=== PATIENT | female | born 1980 | race Caucasian/White ===

== ENCOUNTER 2019-04-08 09:47 | Inpatient (IN) | payer OTHER ==
[~2019-04-08] VITALS: Ht 165.1 cm; Wt 72.6 kg
--- NOTE | 2019-04-08 09:57 | NUR ---
CAME IN FOR ABDOMINAL CRAMPING, VAGINAL BLEEDING X 10 DAYS. SEND BY OB FOR EVAL. TO ER BED 16, HOOKED TO MONITOR, CHANGED TO GOWN, PROVIDED W WARM BLANKET, AT BEDSIDE, AWAITING MD SAMUEL
--- NOTE | 2019-04-08 09:58 | NUR ---
DR PINZON AT BEDSIDE
[2019-04-08] MEDS ORDERED: IV NS 0.9% 1,000 ML BAG IV ONE (10:00)
[2019-04-08 10:15] LABS: BASOPHILS % (AUTO) 0.7 % (0.0-2.0); EOSINOPHILS % (AUTO) 2.3 % (0.0-6.0); HEMATOCRIT 37 % (33-45); HEMOGLOBIN 12.1 g/dL (11.5-14.8); LYMPHOCYTES # (AUTO) 1.8 /CMM (0.8-4.8); LYMPHOCYTES % (AUTO) 28.8 % (20.0-44.0); MEAN CORPUSCULAR HGB CONC 33 g/dl (31.0-36.0); MEAN CORPUSCULAR VOLUME 87 fL (82-100); MONOCYTES # (AUTO) 0.4 /CMM (0.1-1.30); MONOCYTES % (AUTO) 6.4 % (2.0-12.0); NEUTROPHILS # (AUTO) 3.9 /CMM (1.8-8.9); NEUTROPHILS % (AUTO) 61.8 % (43.0-81.0); PLATELET COUNT (AUTO) 304 /CMM (150-450); RED BLOOD CELL COUNT(AUTO) 4.19 MIL/uL (4.0-5.2); WHITE BLOOD COUNT (AUTO) 6.3 K/uL (4.3-11.0)
--- NOTE | 2019-04-08 10:31 | NUR ---
US TECH AT BEDSIDE
[2019-04-08] MEDS ORDERED: ANESTHESIA TRAY IN PYXIS 1 EA TRAY MC ONE (10:40)
--- NOTE | 2019-04-08 11:07 | NUR ---
REPORT GIVEN TO SUZAN BENJAMIN RN OF OR, CONSENT FOR DILATATION AND CURETTAGE SIGNED, CONSENT FOR BLOOD TRANSFUSION SIGNED, CONSENT FOR ANESTHESIA SIGNED BY PATIENT, PRE-OP CHECKLIST DONE.
--- NOTE | 2019-04-08 11:10 | NUR ---
WHEELED OUT VIA GURNEY BY OR NURSES
[2019-04-08 12:26] LABS: CALCIUM, SERUM 8.4 mg/dL (8.5-10.1); CREATININE 0.8 mg/dL (0.6-1.3); POTASSIUM 4.1 mmol/L (3.5-5.1)
[2019-04-08] MEDS ORDERED: CLINDAMYCIN 900 MG/6 ML VIAL ONE (13:00)
[2019-04-08] MEDS ORDERED: ONDANSETRON HCL/PF 4 MG/2 ML VIAL ONE (13:31)
[2019-04-08 13:33] LABS: ALBUMIN 3.9 g/dL (3.4-5.0); BILIRUBIN,DIRECT 0.1 mg/dL (0.0-0.2); BILIRUBIN,TOTAL 0.4 mg/dL (0.2-1.0); TOTAL PROTEIN, SERUM 7.6 g/dL (6.4-8.2)
[2019-04-08] MEDS ORDERED: IBUPROFEN 400 MG TABLET PO PRN (14:00)
[2019-04-08] MEDS ORDERED: ACETAMINOPHEN W/ CODEINE#3 1 EA TABLET PO PRN (14:00)
[2019-04-08 14:45] VITALS: BP 121/74
--- NOTE | 2019-04-08 14:45 | NUR ---
CRIME LAB TECHNICIAN NOTES PT STABLE S/P D&C. PT AT BEDSIDE. NO COMPLAINTS OF PAIN, SOB OR DISTRESS. PT HAS RIGHT HAND #20 IV INTACT AND PATENT. PT EDUCATED TO THE USE OF THE CALL LIGHT. SKIN INTACT. SAFETY PRECAUTIONS IN PLACE, BED IN LOWEST LOCKED POSITION, X2 SIDE RAILS UP AND CALL LIGHT WITHIN REACH. WILL CONTINUE TO MONITOR.
[2019-04-08 15:15] VITALS: BP 118/81
--- NOTE | 2019-04-08 15:24 | NUR ---
RN NOTES PER PATIENT DOES NOT WANT TO SHARE INFORMATION ABOUT DIAGNOSIS TO FAMILY, EXCEPT .
[2019-04-08] MEDS: IV D5 LR 1,000 ML IV PRN (15:52)
[2019-04-08 16:15] VITALS: BP 109/77
--- NOTE | 2019-04-08 16:38 | NUR ---
RN NOTES ENTERED ALL ORDERS PER DR SANTILLAN. WILL CARRY OUT.
[2019-04-08 17:00] VITALS: BP 135/83
--- NOTE | 2019-04-08 17:39 | NUR ---
RN NOTES PER DR SANTILLAN PT OKAY TO DISCHARGE TOMORROW AFTER TEST.
[2019-04-08 17:45] VITALS: BP 127/69
[2019-04-08 18:12] LABS: BASOPHILS # (AUTO) 0.1 /CMM (0.0-0.2); BASOPHILS % (AUTO) 1.2 % (0.0-2.0); EOSINOPHILS % (AUTO) 1.6 % (0.0-6.0); HEMATOCRIT 32 % (33-45); HEMOGLOBIN 10.5 g/dL (11.5-14.8); LYMPHOCYTES # (AUTO) 1.9 /CMM (0.8-4.8); LYMPHOCYTES % (AUTO) 36.2 % (20.0-44.0); MEAN CORPUSCULAR HGB CONC 33 g/dl (31.0-36.0); MEAN CORPUSCULAR VOLUME 87 fL (82-100); MONOCYTES # (AUTO) 0.3 /CMM (0.1-1.30); MONOCYTES % (AUTO) 6.3 % (2.0-12.0); NEUTROPHILS # (AUTO) 2.9 /CMM (1.8-8.9); NEUTROPHILS % (AUTO) 54.7 % (43.0-81.0); PLATELET COUNT (AUTO) 263 /CMM (150-450); RED BLOOD CELL COUNT(AUTO) 3.65 MIL/uL (4.0-5.2); WHITE BLOOD COUNT (AUTO) 5.3 K/uL (4.3-11.0)
--- NOTE | 2019-04-08 18:21 | NUR ---
RN CLOSING NOTES PT AWAKE AND RESTING IN BED. PT AT BEDSIDE. NO COMPLAINTS OF PAIN, SOB OR DISTRESS DURING SHIFT. PT HAS RIGHT HAND #20 IV INTACT AND PATENT AND RUNNING D5LR @75ML/HR. PT TOLERATING FLUIDS WELL. PT HAS URINATED POST ROSARIO REMOVAL. NO SIGNS OF CONTINUED VAGINAL BLEEDING. SAFETY PRECAUTIONS IN PLACE, BED IN LOWEST LOCKED POSITION, X2 SIDE RAILS UP AND CALL LIGHT WITHIN REACH. WILL ENDORSE TO PATHOLOGY TECHNOLOGIST NURSE FOR CONTINUITY OF CARE.
--- NOTE | 2019-04-08 19:15 | NUR ---
MS RN OPENING NOTES: RECEIVED PT ON ROOM AIR AND IS TOLERATING WELL. NO SOB NOTED. NO S/S OF DISTRESS. PT IS A/OX4. PT SITTING UP IN BED ON HER PHONE AND WATCHING TELEVISION. PT HAS IV ON R HAND #20G AND IS BEING INFUSED WITH IV D5LR AT 75ML/HR. BED KEPT IN LOW, LOCKED POSITION, AND SIDE RAILS X 2UP. WILL CONTINUE TO MONITOR PT.
[2019-04-08 20:00] VITALS: BP 120/84
[2019-04-08] MEDS: CLINDAMYCIN 600 MG in IV D5W 50 ML IV SCH (20:02)
[2019-04-09] MEDS: CLINDAMYCIN 600 MG in IV D5W 50 ML IV SCH (03:00)
[2019-04-09 04:00] VITALS: BP 103/57
[2019-04-09] MEDS: IV D5 LR 1,000 ML IV PRN (05:45)
--- NOTE | 2019-04-09 06:11 | NUR ---
MS RN NOTES: MRSA OF NARES COLLECTED AND GIVEN TO SENIOR OPERATOR ON FLOOR.
--- NOTE | 2019-04-09 06:19 | NUR ---
MS RN CLOSING NOTES: ALL NEEDS WERE ATTENDED AND ANTICIPATED FOR. NO S/S OF DISTRESS. NO SOB NOTED. PT KEPT CLEAN, DRY, AND COMFORTABLE. PT AWAKE AND SITTING UP IN BED AWAITING FOR BLOOD DRAW. IV REMAINS INTACT AND IS BEING INFUSED WITH IV D5LR AT 75ML/HR. BED KEPT IN LOW, LOCKED POSITION, AND SIDE RAILS X 2UP. WILL ENDORSE TO AM NURSE FOR HAMLET.
--- NOTE | 2019-04-09 07:44 | NUR ---
RN OPENING NOTES PT AWAKE AND RESTING IN BED. NO COMPLAINTS OF PAIN, SOB OR DISTRESS AT THIS TIME. PT HAS RIGHT HAND #20 IV INTACT AND PATENT AND RUNNING D5LR @75ML/HR. PT TOLERATING FLUIDS WELL. PER DR SANTILLAN, PATIENT OKAY TO DISCHARGE. SAFETY PRECAUTIONS IN PLACE, BED IN LOWEST LOCKED POSITION, X2 SIDE RAILS UP AND CALL LIGHT WITHIN REACH. WILL CONTINUE TO MONITOR.
--- NOTE | 2019-04-09 09:15 | NUR ---
broomcorn sorter notes pt stable at discharge. no s/s of bleeding. all discharge paperwork discussed, signed, copied, and given to the patient at discharge. all belongings taken home with patient. pt ambulated off of unit with son and mother. iv and id removed prior to discharge.
== END 2019-04-09 09:15 | disposition home or self-care (01) | DRG 770 ==
LOC: ER 09:47 → OPD 12:15 → MED 12:18
PROVIDERS: ADMIT Obstetrics & Gynecology; ATTEND Obstetrics & Gynecology
PROC: 10A07ZZ Abortion of Products of Conception, Via Natural or Artificial Opening (ICD-10-PCS; principal; 2019-04-08)
DX: O03.4 Incomplete spontaneous abortion without complication (principal); Z98.82 Breast implant status
CPT/HCPCS: 36415; 76856-TC; 80048-TC; 80076-TC; 84702-TC; 85025-TC; 85610-TC; 85730-TC; 86850-TC; 87081-TC; 88305-TC; G0378; J0330; J2001; J2405; J2704; J3490; J7030; J7060